=== PATIENT | female | born 1990 | race Caucasian/White ===

== ENCOUNTER 2018-06-08 11:53 | Emergency (ER) | payer OTHER ==
--- NOTE | 2018-06-08 13:03 | EDPHY ---
General - History Smoking Status: Never smoked Time Seen by Provider: 06/08/18 12:54 Narrative: CHIEF COMPLAINT: Right-sided chest pain HISTORY OF PRESENT ILLNESS: Patient presents with complaints of chest pain. Chest pain was right-sided and started at 11:00 a.m. While at rest. It resolved after 1 hr without intervention. She took no medications. No shortness of breath. No fever. No cough. She has recently had an upper respiratory infection, described as runny nose and sinus congestion. She has no sore throat. She has no erythema, edema or pain in the extremities. No history of venous thrombolic event. She is not taking anxiety in his estrogen. She did recently moved from [place] nearly 2 months ago. No other associated complaints or modifying factors. No complaints of any kind at this time. REVIEW OF SYSTEMS: 10 systems were reviewed and negative with the exception of the elements mentioned in the history of present illness. PCP: Pending appoint with [place] doctor Jane on Friday SPECIALISTS: None PAST MEDICAL HISTORY: Orthopedic injuries PAST SURGICAL HISTORY: Meniscus repair SOCIAL HISTORY: Nonsmoker. Recently moved from [place]. 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 No wheezing, rhonchi or crackles Cardiovascular: Regular rate and rhythm Gastrointestinal: Abdomen is soft and nontender Back: non-tender, no bony abnormalities Neurological: A&O, nonfocal, normal gait Skin: Warm and dry, no rash Extremities: Nontender, no pedal edema. No evidence of DVT. Psychiatric: Mood and affect normal DIFFERENTIAL DIAGNOSES: Including but not limited to pleurisy, bronchitis, pneumonia, PE, ACS, pneumonitis, bronchiolitis MDM: 12:55 p.m. Right-sided chest pain of 1 hr duration earlier today that has resolved for greater than an hour. This was pleuritic in nature. Nonexertional. Did not radiate. No shortness of breath. No fever. She does have a recent upper respiratory infection over the past 2 weeks. She is perc negative. She is in no acute distress and no complaints of any kind. EKG performed reveals sinus rhythm without ischemia. This has been reviewed by Dr. Leslee Cruz. I have ordered chest x-ray and she has declined any further test. I do feel this is reasonable and that she does not need any further test at this time. 2:10 p.m. X-ray reveals mild bronchitis but no acute findings. Patient re-evaluated. She still has no chest pain. I do feel it is reasonable for to be discharged home at this time. We discussed the possibility of pleurisy. We discussed ibuprofen for next few days. we discussed strict ED precautions for any return of chest pain, shortness of breath, fever or elevation her heart rate. She verbalized understanding of this. She is well-appearing with normal vital signs. She is discharged home stable condition. EKG interpretation: Dr. Leslee Cruz Rate 50 beats per minute. Normal sinus rhythm. No ischemia conduction delay. SUPERVISION: This patient was independently evaluated without direct involvement of or examination by the attending physician. CONSULTATION: None (Guilherme Montalvo) Discussion: The patient was evaluated and managed by the Physician Glass Technician/Installer. My co- signature indicates that I have reviewed this chart and I agree with the findings and plan of care as documented. I am the secondary supervising physician. (Leslee Cruz) - Objective Vital Signs: Initial Vital Signs Temperature (C) 36.6 C 06/08/18 12:06 Heart Rate 73 06/08/18 12:06 Respiratory Rate 06/08/18 12:06 Blood Pressure 121/63 H 06/08/18 12:06 O2 Sat (%) 96 06/08/18 12:06 O2 Delivery Mode Room Air Allergies/Adverse Reactions: No Known Allergies Allergy (Unverified 06/08/18 12:10) Home Medications: Medication Instructions Recorded Nexplanon 06/08/18 Departure - Departure Disposition: Home, Routine, Self-Care Clinical Impression: Chest pain, Pleurisy Condition: Good Instructions: Chest Pain (ED), Pleurisy (ED) Additional Instructions: 1. Ibuprofen 600 mg every 8 hr for the next 7-10 days 2. Keep her appointment on Friday with primary care physician 3. Return to emergency department for any return of your pain, fever, shortness of breath or elevation of her heart rate Referrals: MARIKA JANE [Other] - As per Instructions
[2018-06-08 14:21] VITALS: BP 118/85
--- NOTE | 2018-06-08 15:56 | CPEKG ---
Test Reason : OPEN Blood Pressure : / mmHG Vent. Rate : 053 BPM Atrial Rate : 055 BPM P-R Int : 144 ms QRS Dur : 101 ms QT Int : 430 ms P-R-T Axes : 072 077 042 degrees QTc Int : 404 ms Sinus rhythm Confirmed by Leslee Cruz ([id number]) on 06/08/2018 3:55:33 PM Referred By: Confirmed By:Leslee Cruz
== END 2018-06-08 14:26 | disposition home or self-care (01) ==
DX: R07.9 Chest pain, unspecified (principal); J40 Bronchitis, not specified as acute or chronic